=== PATIENT | female | born 1995 | race Caucasian/White ===

== ENCOUNTER 2016-10-31 21:56 | Emergency (ER) | payer SELFPAY ==
[~2016-10-31] VITALS: Ht 160 cm; Wt 60.9 kg
[2016-10-31 22:01] VITALS: BP 116/71; PULSE 85; RESP 16; TEMP 98.2; O2SAT 100
--- NOTE | 2016-10-31 22:28 | PD ---
HPI Chief Complaint: GI Complaint Time Seen by Provider: 22:18 Travel History International Travel<30 days: No Contact w/Intl Traveler<30days: No Traveled to known affect area: No History of Present Illness HPI The patient is a 21-year-old female that complains of nausea without vomiting, diarrhea and shakes since 8 PM. She feels dehydrated. She denies any fever. She denies any abdominal pain. She did drink alcohol last night, 24 hours ago but went to the [place] and was otherwise feeling well today until 8 PM. She denies any blood in the stool. PFSH Past Medical History ?: Not LMP: 09/21/2016 Social History Tobacco Use: No Allergies-Medications (Allergen,Severity, Reaction): Coded Allergies: No Known Allergies (Unverified , 10/31/16) Reported Meds & Prescriptions Reported Meds & Active Scripts Active Phenergan (Promethazine HCl) 25 Mg Tablet 25 Mg PO Q6H PRN Review of Systems Except as stated in HPI: all other systems reviewed are Neg Physical Exam Narrative GENERAL: The patient is alert, oriented 3, mildly dehydrated appearing and in minimal apparent distress with her nausea. Her vital signs are normal. SKIN: Focused skin assessment warm/dry. HEAD: Atraumatic. Normocephalic. EYES: Pupils equal and round. No scleral icterus. No injection or drainage. ENT: No nasal bleeding or discharge. Mucous membranes pink and moist. NECK: Trachea midline. No JVD. CARDIOVASCULAR: Regular rate and rhythm. No murmur appreciated. RESPIRATORY: No accessory muscle use. Clear to auscultation. Breath sounds equal bilaterally. GASTROINTESTINAL: Abdomen soft, non-tender, nondistended. Hepatic and splenic margins not palpable. No guarding or rebound is present. MUSCULOSKELETAL: No obvious deformities. No clubbing. No cyanosis. No edema. NEUROLOGICAL: Awake and alert. No obvious cranial nerve deficits. Motor grossly within normal limits. Normal speech. PSYCHIATRIC: Appropriate mood and affect; insight and judgment normal. Data Data Last Documented VS Vital Signs Date Time Temp Pulse Resp B/P Pulse Ox O2 Delivery O2 Flow Rate FiO2 10/31/16 23:20 103 18 144/79 97 Room Air 10/31/16 22:01 98.2 Orders Ondansetron Inj (Zofran Inj) (10/31/16 22:30) Sodium Chlor 0.9% 1000 Ml Inj (Ns 1000 M (10/31/16 22:30) Complete Blood Count With Diff (10/31/16 22:24) Basic Metabolic Panel (Bmp) (10/31/16 22:24) Urinalysis - C+S If Indicated (10/31/16 22:24) Beta Hcg (Quant/Titer) (10/31/16 22:24) Ondansetron Inj (Zofran Inj) (10/31/16 23:00) Potassium Chloride (Kcl) (10/31/16 23:45) Prochlorperazine Inj (Compazine Inj) (11/01/16 00:00) Sodium Chlor 0.9% 1000 Ml Inj (Ns 1000 M (11/01/16 00:00) Lipase (10/31/16 23:54) Labs Laboratory Tests Test 10/31/16 10/31/16 22:40 23:04 White Blood Count 17.9 TH/MM3 Red Blood Count 4.51 MIL/MM3 Hemoglobin 13.7 GM/DL Hematocrit 40.3 % Mean Corpuscular Volume 89.4 FL Mean Corpuscular Hemoglobin 30.4 PG Mean Corpuscular Hemoglobin 34.0 % Concent Red Cell Distribution Width 12.6 % Platelet Count 192 TH/MM3 Mean Platelet Volume 13.4 FL Neutrophils (%) (Auto) 80.4 % Lymphocytes (%) (Auto) 10.9 % Monocytes (%) (Auto) 7.9 % Eosinophils (%) (Auto) 0.5 % Basophils (%) (Auto) 0.3 % Neutrophils # (Auto) 14.4 TH/MM3 Lymphocytes # (Auto) 1.9 TH/MM3 Monocytes # (Auto) 1.4 TH/MM3 Eosinophils # (Auto) 0.1 TH/MM3 Basophils # (Auto) 0.1 TH/MM3 CBC Comment AUTO DIFF Differential Comment AUTO DIFF CONFIRMED Platelet Estimate NORMAL Platelet Morphology Comment ENLARGED Red Cell Morphology Comment NORMAL Sodium Level 143 MEQ/L Potassium Level 3.2 MEQ/L Chloride Level 106 MEQ/L Carbon Dioxide Level 26.2 MEQ/L Anion Gap 11 MEQ/L Blood Urea Nitrogen 13 MG/DL Creatinine 1.00 MG/DL Estimat Glomerular Filtration 71 ML/MIN Rate Random Glucose 93 MG/DL Calcium Level 10.2 MG/DL Lipase 115 U/L Human Chorionic Gonadotropin, LESS THAN 1 Quant MIU/ML Urine Color YELLOW Urine Turbidity CLEAR Urine pH 6.5 Urine Specific [place] 1.018 Urine Protein TRACE mg/dL Urine Glucose (UA) NEG mg/dL Urine Ketones NEG mg/dL Urine Occult Blood NEG Urine Nitrite NEG Urine Bilirubin NEG Urine Leukocyte Esterase NEG Urine WBC 0-2 /hpf Urine Squamous Epithelial 0-5 /hpf Cells Urine Amorphous Sediment SMALL Urine Mucus OCC /lpf Microscopic Urinalysis Comment CULT NOT INDICATED MDM Medical Decision Making Medical Screen Exam Complete: Yes Emergency Medical Condition: Yes Medical Record Reviewed: Yes Interpretation(s) The CBC shows a white count of 17,900 with 80% neutrophils but is otherwise unremarkable. The lipase is normal. The potassium is 3.2 and the GFR is 71 with a calcium of 10.2 but the basic metabolic profile is otherwise normal. The urinalysis is normal and culture is not indicated. Differential Diagnosis Gastroenteritis, colitis, , electrolyte disorder, dehydration, renal insufficiency, bacterial enteritis, food poisoning Narrative Course It is now 0033 and the patient feels no nausea and wants to go home. Impression: Gastroenteritis Plan: The patient will increase liquid intake, stay away from alcohol and is given Phenergan for nausea. She should take the Phenergan every 6 hours initially. Diagnosis Primary Impression: Gastroenteritis Additional Instructions: As we discussed, return to emergency department if you get nauseated and cannot get down liquids again. Take the Phenergan every 6 hours initially to prevent nausea. Sip Gatorade/Pedialyte to stay hydrated. Stay away from alcohol. Follow-up with her primary care physician next week. Med/Other Pt SpecificInfo: Prescription(s) given Scripts Promethazine (Phenergan)25 Mg [id number] Mg PO Q6H PRN (NAUSEA OR VOMITING) #30 TAB Ref 0 Prov:Josiah Olivarez MD 10/31/16 Disposition: DISCHARGE HOME Condition: Stable Joisah Olivarez MD Oct 31, 2016 22:28
[2016-10-31] MEDS ORDERED: ONDANSETRON HCL 4 MG/2 ML VIAL IV ONE ×2 (22:30→23:00)
[2016-10-31] MEDS: SODIUM CHLOR 0.9% 1000 ML INJ 1,000 ML IV SCH ×2 (22:32→23:24)
[2016-10-31 23:18] LABS: BLOOD UREA NITROGEN 13 MG/DL (7-18); GLOMERULAR FILTRATION RATE 71 ML/MIN (>89)
[2016-10-31 23:19] LABS: CHLORIDE 106 MEQ/L (98-107); POTASSIUM 3.2 MEQ/L (3.5-5.1); SODIUM (NA) 143 MEQ/L (136-145)
[2016-10-31 23:20] VITALS: BP 144/79; PULSE 103; RESP 18; O2SAT 97
[2016-10-31 23:37] LABS: BLOOD, URINE NEG (NEG); GLUCOSE,URINE NEG (NEG); KETONE, URINE NEG (NEG); NITRITE,URINE NEG (NEG); PH, URINE 6.5 (5.0-8.5)
[2016-10-31] MEDS ORDERED: PROM25TA10 PO (23:37)
[2016-10-31 23:39] LABS: AUTOMATED NEUTROPHIL # 14.4 TH/MM3 (1.8-7.7); BASOPHIL # 0.1 TH/MM3 (0-0.2); BASOPHIL % 0.3 % (0.0-2.0); EOSINOPHIL # 0.1 TH/MM3 (0-0.4); EOSINOPHIL % 0.5 % (0.0-4.0); HEMATOCRIT 40.3 % (35.0-46.0); LYMPH % 10.9 % (9.0-44.0); LYMPHOCYTE # 1.9 TH/MM3 (1.0-4.8); MEAN CELL VOLUME 89.4 FL (80.0-100.0); MEAN CORPUSCULAR HEMOGLOBIN 30.4 PG (27.0-34.0); MONO % 7.9 % (0.0-8.0); NEUT % 80.4 % (16.0-70.0); PLATELET COUNT 192 TH/MM3 (150-450); RED BLOOD COUNT 4.51 MIL/MM3 (4.00-5.30); RED CELL DISTRIBUTION WIDTH 12.6 % (11.6-17.2); WHITE BLOOD COUNT 17.9 TH/MM3 (4.0-11.0)
[2016-10-31 23:44] LABS: HEMO FLAGS AUTO DIFF
[2016-10-31] MEDS ORDERED: POTASSIUM CHLORIDE 20 MEQ CONTROLLED RELEASE TAB PO ONE (23:45)
[2016-10-31 23:55] LABS: URINE COLOR YELLOW (YELLW/STRAW)
[2016-10-31 23:56] LABS: MUCUS URINE OCC /lpf (OCC); SQUAMOUS EPITHELIAL CELL URINE 0-5 /hpf (0-5); WBC, URINE 0-2 /hpf (0-5)
[2016-10-31 23:57] LABS: COMMENT (UR) CULT NOT INDICATED; CULTURE IF INDICATED CULT NOT INDICATED
[2016-11-01] MEDS ORDERED: SODIUM CHLOR 0.9% 1000 ML INJ 1,000 ML IV SCH
[2016-11-01] MEDS ORDERED: PROCHLORPERAZINE INJ 10 MG/2 ML VIAL IV PUSH ONE
[2016-11-01 00:02] LABS: ANION GAP 11 MEQ/L (5-15); BICARBONATE 26.2 MEQ/L (21.0-32.0)
[2016-11-01 00:05] LABS: BETA HCG QUANT LESS THAN 1 MIU/ML (0-5)
[2016-11-01 00:19] LABS: PLATELET ESTIMATE SMEAR NORMAL (NORMAL); PLATELET MORPHOLOGY ENLARGED (NORMAL); SCAN/DIFF AUTO DIFF CONFIRMED
[2016-11-01 00:37] VITALS: BP 131/58; TEMP 98.8
== END 2016-11-01 00:45 | disposition home or self-care (01) ==
LOC: PHED 21:56
DX: K52.9 Noninfective gastroenteritis and colitis, unspecified (principal)
CPT/HCPCS: 80048; 81001; 83690; 84702; 85025; 96361; 96374; 96375; 96376; 99284; J0780; J2405; J7030

== ENCOUNTER 2017-07-23 16:03 | Emergency (ER) | payer MEDICAID, OTHER ==
[~2017-07-23] VITALS: Ht 162.6 cm; Wt 62.6 kg
[~2017-07-23 16:03] MED LIST: PROM25TA10 PO
[2017-07-23 16:07] VITALS: BP 136/69; PULSE 96; RESP 16; TEMP 99.2; O2SAT 100
--- NOTE | 2017-07-23 16:32 | PD ---
HPI Chief Complaint: [employer]ature [employer] Problem/Complaint Time Seen by Provider: 16:30 Travel History International Travel<30 days: No Contact w/Intl Traveler<30days: No Traveled to known affect area: No History of Present Illness HPI Patient comes in complaining of a burning sensation and what she believes may be a tear on her vagina. Patient states that this was experienced after sex, this was consensual with her partner, and it was not any type of forced intercourse. Patient states that she has had these occur in the past but they usually heal on their own. When patient was asked if she has had any discharge patient denied, when asked if she had any lesions, rash on her vulva/vagina patient stated that she has noticed some bumps recently. No known drug allergy Patient denies any past medical or surgical history Patient states that she has unprotected monogamous sex with same partner PFSH Past Medical History Hx Anticoagulant Therapy: No Diabetes: No ?: Not Social History Alcohol Use: No Tobacco Use: No Substance Use: No Allergies-Medications (Allergen,Severity, Reaction): Coded Allergies: No Known Allergies (Unverified Adverse Reaction, Unknown, 07/23/17) Reported Meds & Prescriptions Reported Meds & Active Scripts Active Acyclovir 800 Mg Tab 800 Mg PO 5 TIMES A DAY 7 Days Phenergan (Promethazine HCl) 25 Mg Tablet 25 Mg PO Q6H PRN Review of Systems Except as stated in HPI: all other systems reviewed are Neg Genitourinary: Positive: Dyspareunia, Other (Vaginal lesions on the outside.) Physical Exam Narrative GENERAL: SKIN: Warm and dry. HEAD: Atraumatic. Normocephalic. EYES: Pupils equal and round. No scleral icterus. No injection or drainage. ENT: No nasal bleeding or discharge. Mucous membranes pink and moist. NECK: Trachea midline. No JVD. CARDIOVASCULAR: Regular rate and rhythm. RESPIRATORY: No accessory muscle use. Clear to auscultation. Breath sounds equal bilaterally. GASTROINTESTINAL: Abdomen soft, non-tender, nondistended. MERLINE BURGER at bedside assisting for the exam: Vulvar examination reveals 4 -5 papulovesicular lesions consistent with herpes, 1 of those lesions was ruptured and had exposed skin which was what the patient described as the "laceration" but essentially was an abrasion secondary to a ruptured vesicular lesion MUSCULOSKELETAL: Extremities without clubbing, cyanosis, or edema. No obvious deformities. NEUROLOGICAL: Awake and alert. No obvious cranial nerve deficits. Motor grossly within normal limits. Five out of 5 muscle strength in the arms and legs. Normal speech. PSYCHIATRIC: Appropriate mood and affect; insight and judgment normal. Data Data Last Documented VS Vital Signs Date Time Temp Pulse Resp B/P (MAP) Pulse Ox O2 Delivery O2 Flow Rate FiO2 07/23/17 16:07 99.2 96 16 136/69 (91) 100 Orders Orders Gc And Chlamydia Pcr (07/23/17 16:34) Wet Prep Profile (07/23/17 16:34) Urinalysis - C+S If Indicated (07/23/17 16:34) Ed Urine Pregnancytest Poc (07/23/17 16:34) Valacyclovir (Valtrex) (07/23/17 17:00) Labs Laboratory Tests Test 07/23/17 16:35 Clue Cells (Wet Prep) NONE SEEN Vaginal Trichomonas (Wet Prep) NONE SEEN Vaginal Yeast (Wet Prep) NONE SEEN MDM Medical Decision Making Medical Screen Exam Complete: Yes Emergency Medical Condition: Yes Medical Record Reviewed: Yes Differential Diagnosis Herpes versus gonorrhea versus chlamydia versus other viral infections or STDs such as hepatitis B, hepatitis C, HIV, and syphilis Narrative Course Today test was negative, additionally negative for clue cells, negative for yeast and negative for trichomonas.. However due to the presence of herpetic lesions on her vulva, I recommended patient have full STD testing performed. Swabs were obtained for gonorrhea chlamydia and bacterial vaginitis as well as trichomonas. 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 [phone] On tuesdayJuly 26 for free STD testing..... No appointment is necessary. Scripts Acyclovir (Acyclovir) 800 Mg Tab 800 MG PO 5 TIMES A DAY for Mgmt Viral Infection for 7 Days, #35 TAB 0 Refills Prov: Ankit Villalpando MD 3/17/18 Disposition: 01 DISCHARGE HOME Condition: Stable [place],Ankit Chris MD Jul 23, 2017 16:32
[2017-07-23] MEDS ORDERED: ACYC800T PO (16:48)
[2017-07-23] MEDS ORDERED: valACYclovir HCL 500 MG TAB PO ONE (17:00)
[2017-07-23 17:13] LABS: BILIRUBIN, URINE NEG (NEG); BLOOD, URINE NEG (NEG); GLUCOSE,URINE NEG (NEG); KETONE, URINE TRACE mg/dL (NEG); NITRITE,URINE NEG (NEG); PH, URINE 5.5 (5.0-8.5); URINE COLOR YELLOW (YELLW/STRAW); URINE LEUKOCYTE ESTERASE MOD (NEG)
[2017-07-23 17:25] LABS: BACTERIA, URINE FEW /hpf; WBC, URINE 0-2 /hpf (0-5)
== END 2017-07-23 17:42 | disposition home or self-care (01) ==
LOC: PHED 16:03
DX: S30.814A Abrasion of vagina and vulva, initial encounter (principal); A60.04 Herpesviral vulvovaginitis; X58.XXXA Exposure to other specified factors, initial encounter
CPT/HCPCS: 81001; 84703; 87210; 87491; 87591; 99284